=== PATIENT | female | born 1935 | race Asian ===

== ENCOUNTER → 2016-12-17 | Outpatient (CLI) | payer MEDICARE, OTHER ==
[~2016-12-17] MED LIST: ADVAIR 250-501 EACH INH; ADVAIR 2501 DISK W/D PO; DILTIAZEM 24HR300 MG PO; DILTIAZEM 24HR360 M1 PO; EVISTA60 M1 PO; FLAGYL PO; K-TAB ER20 MEQ PO; LEVAQUIN750 M1 PO
--- NOTE | ~2016-12-17 | CT134 ---
[facility] A Service of [facility] & [facility] / [facility] RADIOLOGY TEXT RESULTS PATIENT: GALINA TUCKER LOCATION: [facility] : 37 UNIT #: [id number] AGE: [address]: Rodrigo De La Rosa MD SEX: F ORDER DR: [id number] [facility] [address] [place], [place] [address] [id number] O MR#: [id number] Acc #: [id number] NAME: GALINA TUCKER : 1935 SEX: F STUDY DATE/TIME: 12/17/2016 10:42 UNIT: [facility] ROOM: STUDY DESCRIPTION: CT Guide Attending Physician: Rodrigo De La Rosa M.D. Ordering Physician: Rodrigo De La Rosa M.D. Primary Care Physician: Alix Boyce M.D. MEDICAL IMAGING REPORT This report is preliminary unless electronic signature is present EXAM Fiduciary marker placement under CT guidance HISTORY Mass identified on recent MRI. Known cirrhosis. TECHNIQUE This CT exam was performed with one or more of the following radiation dose reduction techniques: automatic exposure control, adjustment of mA and/or kV according to patient size, and iterative reconstruction. PROCEDURE/FINDINGS Procedure, attendant risks and options were discussed with the patient via an tin can laborer. The patient was placed in the supine position in the scanner with the right-sided rotated upward. The scan was reviewed and the lesion was very difficult to see. The lesion was largely localized by correlation with the patient's MR. The skin was marked prepped and draped and anesthetized with 1% Xylocaine. Conscious sedation was provided consisting of Versed and Fentanyl. The patient was monitored by the IR nurse during the entire procedure. Total sedation time was 75 minutes. A 19-gauge guide needle was advanced incrementally to the left side of the lesion and a 3 mm nez perce MicroCoil was deployed through a 22-gauge needle. The cap needle was withdrawn and a second coil was subsequently deployed. Needle was removed, hemostasis achieved. The patient was taken to the short-stay unit where she will be monitored for 4 hours prior to discharge. Incidental note is made of cirrhosis of the liver as well as gallstones and splenomegaly. CONCLUSION Successful placement of 2 nez perce fiduciary markers adjacent to the liver lesions seen on the patient's MR. Please note that it is poorly demonstrated by CT. [facility] A Service of [facility] RADIOLOGY TEXT RESULTS PATIENT: GALINA TUCKER LOCATION: [facility] : 37 UNIT #: [id number] AGE: [address]: Rodrigo De La Rosa MD SEX: F ORDER DR: Dictated by... Jude Elder M.D. THIS IS AN ELECTRONICALLY VERIFIED REPORT Jude Elder M.D. at 12/17/2016 5:04 PM DEEP/torrie TD: 12/17/2016 16:45 JOB #: [id number] MEDICAL IMAGING REPORT Page 1 of 1 COPY
[2016-12-17 08:28] LABS: HEMATOCRIT 35.9 % (35.0-45.0); MEAN CELL VOLUME 69.2 FL (83-96); MEAN CORPUSCULAR HEMOGLOBIN 21.2 PG (28-34); MEAN CORPUSCULAR HGB CONC 30.6 g/dL (30-36); MEAN PLATELET VOLUME 8.6 FL (6.5-11.5); RED BLOOD COUNT 5.18 X10e (3.90-5.30); RED CELL DISTRIBUTION WIDTH 16.6 % (11.0-15.5); WHITE BLOOD COUNT 6.4 X10e3 (4.0-10.5)
[2016-12-17 08:40] LABS: INR 1.1; PROTHROMBIN TIME (PATIENT) 11.6 SECONDS (9.6-11.5)
== END | disposition home or self-care (01) ==
LOC: CIVR 08:02
PROVIDERS: Radiology Radiation Oncology
DX: C22.9 Malignant neoplasm of liver, not specified as primary or secondary (principal); K74.60 Unspecified cirrhosis of liver; K80.20 Calculus of gallbladder without cholecystitis without obstruction; R16.1 Splenomegaly, not elsewhere classified; Z79.899 Other long term (current) drug therapy
CPT/HCPCS: 36415; 76140; 77002; 77012; 85027; 85610; 85730; J0690; J2250; J3010

== ENCOUNTER → 2017-01-11 | Outpatient (CLI) | payer MEDICARE, OTHER ==
--- NOTE | ~2017-01-11 | CR63 ---
[facility] A Service of [facility] & [facility] RADIOLOGY TEXT RESULTS PATIENT: GALINA TUCKER LOCATION: [facility] : 37 UNIT #: [id number] AGE: [address]: Alix Boyce MD SEX: F ORDER DR: [id number] [facility] [address] [place] [address] [place], [place] [address] [id number] O MR#: [id number] Acc #: [id number] NAME: GALINA TUCKER : 1935 SEX: F STUDY DATE/TIME: 01/11/2017 11:38 UNIT: [facility] ROOM: STUDY DESCRIPTION: CR Chest 2 View Attending Physician: Alix Boyce M.D. Referring Physician: Alix Boyce M.D. Ordering Physician: Alix Boyce M.D. Primary Care Physician: Alix Boyce M.D. MEDICAL IMAGING REPORT This report is preliminary unless electronic signature is present EXAM PA and lateral chest. INDICATION Left frontal chest wall pain for 2 weeks on and off. COMPARISON STUDIES Comparison with 03/17/2012 FINDINGS There is a small right pleural effusion. No acute infiltrate. Heart size normal. Visualized osseous structures are unremarkable. IMPRESSION Small right pleural effusion. Otherwise unremarkable. Dictated by... Reno Chowdhury M.D. THIS IS AN ELECTRONICALLY VERIFIED REPORT Reno Chowdhury M.D. at 01/13/2017 7:23 AM HAYLEY/dasha TD: 01/11/2017 17:36 JOB #: [id number] MEDICAL IMAGING REPORT Page 1 of 1 COPY
== END | disposition home or self-care (01) ==
LOC: CRAD 11:03
DX: R07.89 Other chest pain (principal); J90 Pleural effusion, not elsewhere classified
CPT/HCPCS: 71020

== ENCOUNTER → 2017-03-15 | Outpatient (CLI) | payer MEDICARE, OTHER ==
--- NOTE | ~2017-03-15 | MR2 ---
[facility] A Service of [facility] RADIOLOGY TEXT RESULTS PATIENT: GALINA TUCKER LOCATION: [facility] : 37 UNIT #: [id number] AGE: [address]: Roselyn Cristobal MD SEX: F ORDER DR: [id number] [facility] [address] [place], [place] [address] [id number] O MR#: [id number] Acc #: [id number] NAME: GALINA TUCKER : 1935 SEX: F STUDY DATE/TIME: 03/15/2017 8:50 UNIT: [facility] ROOM: STUDY DESCRIPTION: MR Abdomen WWo Cont Attending Physician: Roselyn Cristobal M.D. Referring Physician: Roselyn Cristobal M.D. Ordering Physician: Roselyn Cristobal M.D. Primary Care Physician: Alix Boyce M.D. MRI CENTER REPORT This report is preliminary unless electronic signature is present. EXAM MR abdomen. INDICATION Hepatocellular carcinoma. Liver cancer. Observation for metastatic disease. Restaging. Status post radiotherapy. Generalized abdominal pain. TECHNIQUE Multiplanar MRI of the abdomen with and without contrast (10 mL MultiHance IV contrast). COMPARISON MR abdomen, 10/21/2016. FINDINGS The patient has a small right pleural effusion. The liver is morphologically cirrhotic. There are multiple benign cysts scattered throughout the liver. The patient has developed a linear band-like area of mild T2 hyperintense signal in the inferior right hepatic lobe. This is presumably due to the radiation therapy. The previously described hypervascular lesion inferior right hepatic lobe (segment 6) no longer enhances. This measures 0.8 cm compared to 1.0 cm previously. This is compatible with response to therapy. No new lesions are identified. There is no intrahepatic or extrahepatic biliary dilatation. Hepatic vasculature is patent. The remainder of the solid abdominal organs are unchanged. Prominent periportal lymph nodes are nonspecific in the setting of cirrhosis and these are unchanged. The bowel is not dilated. Mild gallbladder wall [facility] A Service of [facility] RADIOLOGY TEXT RESULTS PATIENT: GALINA TUCKER LOCATION: [facility] #: [id number] : 37 UNIT #: [id number] AGE: [address]: Roselyn Cristobal MD SEX: F ORDER DR: thickening is again noted. There are some gallstones in the gallbladder. No intrahepatic or extrahepatic biliary dilatation. IMPRESSION 1. Cirrhosis of the liver. 2. A 0.8 cm lesion in the inferior right hepatic lobe has decreased in size and no longer shows early arterial enhancement. This is compatible with response to therapy. There is a subtle band-like area of T2 hyperintense signal within the liver along the area of the previous nodule. This is presumably from the patient's radiation therapy. 3. No new liver lesions. 4. Cholelithiasis and mild gallbladder wall thickening are unchanged. 5. Small right pleural effusion. Dictated by... Carmine Mckenzie M.D. THIS IS AN ELECTRONICALLY VERIFIED REPORT Carmine Mckenzie M.D. at 03/17/2017 6:44 AM OLGA/nathen TD: 03/16/2017 19:38 JOB #: [id number] MRI CENTER REPORT Page 1 of 1 COPY
[2017-03-15 10:15] LABS: POC - CREATININE 0.82 mg/dL (0.44-1.03); POC - GFR >60.0 mL/min (>60)
== END | disposition home or self-care (01) ==
LOC: CMRI 07:41
PROVIDERS: Internal Medicine Hematology
DX: C22.9 Malignant neoplasm of liver, not specified as primary or secondary (principal); K74.60 Unspecified cirrhosis of liver; K76.9 Liver disease, unspecified; K80.20 Calculus of gallbladder without cholecystitis without obstruction; J90 Pleural effusion, not elsewhere classified; K82.8 Other specified diseases of gallbladder
CPT/HCPCS: 74183; 82565; A9577